=== PATIENT | female | born 1995 | race Two or more races ===

== ENCOUNTER → 2020-09-30 | Outpatient (CLI) | payer MEDICAID ==
[~2020-09-30] MED LIST: PREN-96 PO
[2020-09-30 11:32] LABS: Amphetamine Screen, Urine NEGATIVE (NEGATIVE); Barbiturate Scree,Urine NEGATIVE (NEGATIVE); Benzodiazephine Screen, Urine NEGATIVE (NEGATIVE); Cannabinoid Screen, Urine NEGATIVE (NEGATIVE); Cocaine Screen, Urine NEGATIVE (NEGATIVE); Opiate Scree,Urine NEGATIVE (NEGATIVE); Phencyclidine Screen, Urine NEGATIVE (NEGATIVE)
[2020-09-30 11:57] LABS: Basophils # (auto) 0 10 ^3/uL (0-0.2); Basophils % (auto) 0.2 % (0.0-2.0); Eosinophils # (auto) 0.1 10 ^3/uL (0-0.8); Eosinophils % (auto) 1.1 % (0.0-7.0); Hematocrit 39.1 % (36.0-46.0); Hemoglobin 13.3 g/dL (12.2-16.2); Lymphocytes # (auto) 1.5 10 ^3/uL (0.4-5.4); Lymphocytes % (auto) 16.7 % (10.0-50.0); Mean Corpuscular Hemoglobin 29.7 pg (28.0-32.0); Mean Corpuscular Hgb Conc. 34.1 g/dL (32.0-36.0); Monocytes # (auto) 0.3 10 ^3/uL (0-1.3); Monocytes % (auto) 3.3 % (0.0-12.0); Neutrophils # (auto) 7.1 10 ^3/uL (1.6-8.6); Neutrophils % (auto) 78.7 % (37.0-80.0); Platelet Count (auto) 181 10^3/uL (140-450); Red Blood Cells 4.49 10^6/uL (4.0-5.20); Red Cell Distribution Width 14.4 % (11.8-14.3)
[2020-10-01 07:06] LABS: RPR Non Reactive (Non Reactive)
== END | disposition home or self-care (01) ==
LOC: LAB 10:05
PROVIDERS: ATTEND Obstetrics & Gynecology
DX: Z34.80 Encounter for supervision of other normal pregnancy, unspecified trimester (principal); Z22.2 Carrier of diphtheria
CPT/HCPCS: 36415; 80307; 83036; 84112; 84702; 85025; 86592; 86703; 86762; 86850; 86900; 86901; 87086; 87340

== ENCOUNTER 2020-12-24 11:19 | Observation (INO) | payer MEDICAID ==
[~2020-12-24] VITALS: Ht 165.1 cm; Wt 70.3 kg
[2020-12-24 11:36] VITALS: BP 104/64
== END 2020-12-24 21:35 | disposition home or self-care (01) ==
LOC: ER 11:19 → LDRP 11:45 → UNDODISOB 15:30 → LDRP 17:22
PROVIDERS: ADMIT Obstetrics & Gynecology; ATTEND Obstetrics & Gynecology
DX: O26.892 Other specified pregnancy related conditions, second trimester (principal); R10.11 Right upper quadrant pain; O36.0920 Maternal care for other rhesus isoimmunization, second trimester, not applicable or unspecified; D84.9 Immunodeficiency, unspecified; O99.112 Other diseases of the blood and blood-forming organs and certain disorders involving the immune mechanism complicating pregnancy, second trimester; Z3A.23 23 weeks gestation of pregnancy
CPT/HCPCS: 59025; 76815; 81002; 94760; 99284; G0378

== ENCOUNTER 2020-12-26 07:35 | Observation (INO) | payer MEDICAID | END 2020-12-26 10:26 | disposition home or self-care (01) | LOC: LDRP 07:35 | PROVIDERS: ADMIT Specialist; ATTEND Specialist | DX: Z34.82 Encounter for supervision of other normal pregnancy, second trimester (principal); Z3A.23 23 weeks gestation of pregnancy | CPT/HCPCS: 59025; 76815; 81002; G0378 ==

== ENCOUNTER → 2021-01-26 | Outpatient (CLI) | payer MEDICAID | END | disposition home or self-care (01) | LOC: LAB 09:08 | PROVIDERS: ATTEND Obstetrics & Gynecology | DX: Z34.82 Encounter for supervision of other normal pregnancy, second trimester (principal); Z3A.27 27 weeks gestation of pregnancy | CPT/HCPCS: 82951 ==

== ENCOUNTER → 2021-03-17 | Outpatient (CLI) | payer MEDICAID ==
[2021-03-17 10:28] LABS: Basophils # (auto) 0 10 ^3/uL (0-0.2); Basophils % (auto) 0.2 % (0.0-2.0); Eosinophils # (auto) 0.1 10 ^3/uL (0-0.8); Hematocrit 34.8 % (36.0-46.0); Hemoglobin 11.9 g/dL (12.2-16.2); Lymphocytes # (auto) 1.3 10 ^3/uL (0.4-5.4); Lymphocytes % (auto) 13.2 % (10.0-50.0); Mean Corpuscular Hemoglobin 29.7 pg (28.0-32.0); Mean Corpuscular Hgb Conc. 34.1 g/dL (32.0-36.0); Mean Corpuscular Volume 87.3 fL (80.0-100.0); Monocytes # (auto) 0.4 10 ^3/uL (0-1.3); Monocytes % (auto) 4.7 % (0.0-12.0); Neutrophils # (auto) 7.7 10 ^3/uL (1.6-8.6); Neutrophils % (auto) 80.9 % (37.0-80.0); Red Blood Cells 3.99 10^6/uL (4.0-5.20); Red Cell Distribution Width 13.5 % (11.8-14.3); White Blood Cell 9.5 10^3/uL (4.4-10.8)
[2021-03-18 06:06] LABS: RPR Non Reactive (Non Reactive)
== END | disposition home or self-care (01) ==
LOC: LAB 10:02
PROVIDERS: ATTEND Obstetrics & Gynecology
DX: Z34.83 Encounter for supervision of other normal pregnancy, third trimester (principal); Z3A.34 34 weeks gestation of pregnancy
CPT/HCPCS: 36415; 84112; 85025; 86592

== ENCOUNTER 2021-03-25 16:00 | Observation (INO) | payer MEDICAID | END 2021-03-25 18:12 | disposition home or self-care (01) | LOC: LDRP 16:00 | PROVIDERS: ADMIT Obstetrics & Gynecology; ATTEND Obstetrics & Gynecology | DX: O36.5930 Maternal care for other known or suspected poor fetal growth, third trimester, not applicable or unspecified (principal); O42.913 Preterm premature rupture of membranes, unspecified as to length of time between rupture and onset of labor, third trimester; O26.893 Other specified pregnancy related conditions, third trimester; R10.2 Pelvic and perineal pain; Z3A.36 36 weeks gestation of pregnancy | CPT/HCPCS: 59025; 76818; 81002; 94760; G0378 ==

== ENCOUNTER 2021-04-01 07:47 | Observation (INO) | payer MEDICAID | END 2021-04-01 15:50 | disposition home or self-care (01) | LOC: LDRP 14:10 | PROVIDERS: ADMIT Obstetrics & Gynecology; ATTEND Obstetrics & Gynecology | DX: O36.8130 Decreased fetal movements, third trimester, not applicable or unspecified (principal); Z3A.37 37 weeks gestation of pregnancy | CPT/HCPCS: 59025; 76818; 81002; 94760; G0378; G0379 ==

== ENCOUNTER 2021-04-02 10:36 | Observation (INO) | payer MEDICAID ==
[~2021-04-02] VITALS: Ht 165.1 cm; Wt 75.7 kg
== END 2021-04-02 13:45 | disposition home or self-care (01) ==
LOC: LDRP 10:36
PROVIDERS: ADMIT Obstetrics & Gynecology; ATTEND Obstetrics & Gynecology
DX: O46.93 Antepartum hemorrhage, unspecified, third trimester (principal); O36.8130 Decreased fetal movements, third trimester, not applicable or unspecified; Z3A.38 38 weeks gestation of pregnancy
CPT/HCPCS: 59025; 76818; 81002; G0378; G0379

== ENCOUNTER 2021-04-03 08:50 | Observation (INO) | payer MEDICAID ==
[2021-04-03 10:04] LABS: Urine Bacteria FEW /hpf (None Seen); Urine Blood 2+ /uL (Negative); Urine Mucus FEW (None Seen); Urine Specific Gravity 1.029 (1.001-1.035); Urine WBC 11 /hpf (0 - 5)
== END 2021-04-03 11:46 | disposition home or self-care (01) ==
LOC: LDRP 08:50
PROVIDERS: ADMIT Obstetrics & Gynecology Obstetrics; ATTEND Obstetrics & Gynecology Obstetrics
DX: O36.5930 Maternal care for other known or suspected poor fetal growth, third trimester, not applicable or unspecified (principal); O41.03X0 Oligohydramnios, third trimester, not applicable or unspecified; O46.93 Antepartum hemorrhage, unspecified, third trimester; Z3A.37 37 weeks gestation of pregnancy
CPT/HCPCS: 59025; 76818; 81001; 81002; 84112; G0378; G0379; Q0114

== ENCOUNTER 2021-04-04 10:28 | Observation (INO) | payer MEDICAID | END 2021-04-04 13:52 | disposition home or self-care (01) | LOC: LDRP 10:28 | PROVIDERS: ADMIT Obstetrics & Gynecology; ATTEND Obstetrics & Gynecology | DX: O24.419 Gestational diabetes mellitus in pregnancy, unspecified control (principal); O36.5930 Maternal care for other known or suspected poor fetal growth, third trimester, not applicable or unspecified; O41.03X0 Oligohydramnios, third trimester, not applicable or unspecified; Z3A.38 38 weeks gestation of pregnancy; Z79.899 Other long term (current) drug therapy | CPT/HCPCS: 59025; 76818; 81002; G0378; G0379 ==

== ENCOUNTER 2021-04-06 08:47 | Observation (INO) | payer MEDICAID | END 2021-04-06 10:46 | disposition home or self-care (01) | LOC: LDRP 08:47 | PROVIDERS: ADMIT Obstetrics & Gynecology; ATTEND Obstetrics & Gynecology | DX: O36.5930 Maternal care for other known or suspected poor fetal growth, third trimester, not applicable or unspecified (principal); O62.9 Abnormality of forces of labor, unspecified; Z3A.38 38 weeks gestation of pregnancy; Z79.899 Other long term (current) drug therapy | CPT/HCPCS: 59025; 76818; 81002; G0378; G0379 ==

== ENCOUNTER 2021-04-09 08:36 | Observation (INO) | payer MEDICAID | END 2021-04-09 10:04 | disposition home or self-care (01) | LOC: LDRP 09:19 | PROVIDERS: ADMIT Obstetrics & Gynecology; ATTEND Obstetrics & Gynecology | DX: O36.5930 Maternal care for other known or suspected poor fetal growth, third trimester, not applicable or unspecified (principal); O62.9 Abnormality of forces of labor, unspecified; O26.893 Other specified pregnancy related conditions, third trimester; N89.8 Other specified noninflammatory disorders of vagina; Z3A.38 38 weeks gestation of pregnancy | CPT/HCPCS: 59025; 76818; 81002; 94760; G0378; G0379 ==

== ENCOUNTER 2021-04-12 07:19 | Observation (INO) | payer MEDICAID | END 2021-04-12 15:23 | disposition home or self-care (01) | LOC: LDRP 13:43 | PROVIDERS: ADMIT Obstetrics & Gynecology Obstetrics; ATTEND Obstetrics & Gynecology Obstetrics | DX: O36.5930 Maternal care for other known or suspected poor fetal growth, third trimester, not applicable or unspecified (principal); Z3A.39 39 weeks gestation of pregnancy | CPT/HCPCS: 59025; 76818; 81002; 94760; G0378; G0379 ==

== ENCOUNTER 2021-04-13 15:47 | Observation (INO) | payer MEDICAID | END 2021-04-13 17:04 | disposition home or self-care (01) | LOC: LDRP 15:47 | PROVIDERS: ADMIT Obstetrics & Gynecology; ATTEND Obstetrics & Gynecology | DX: O62.9 Abnormality of forces of labor, unspecified (principal); O36.8130 Decreased fetal movements, third trimester, not applicable or unspecified; O26.893 Other specified pregnancy related conditions, third trimester; R51.9 Headache, unspecified; Z3A.39 39 weeks gestation of pregnancy; Z79.899 Other long term (current) drug therapy | CPT/HCPCS: 59025; 81002; G0378; G0379 ==

== ENCOUNTER 2021-04-14 02:20 | Inpatient (IN) | payer MEDICAID ==
[2021-04-14] MEDS ORDERED: METHYLERGONOVINE MALEATE 0.2 MG/ML AMP IM ONE (02:31)
[2021-04-14] MEDS ORDERED: OXYTOCIN 10UNIT/ML 1ML VIAL ONE (02:31)
[2021-04-14] MEDS ORDERED: LIDOCAINE 2%HCL (LOCAL ANESTH.) INJ 20ML MDV ONE ×2 (02:43→02:54)
[2021-04-14] MEDS ORDERED: PHISODERM TOP SOLN 240ML BTL TOP PRN (03:00)
[2021-04-14] MEDS ORDERED: LACTATED RINGER'S 1,000 ML IV SCH (03:00)
[2021-04-14] MEDS ORDERED: WITCH HAZEL-GLYCERIN PAD TOP PRN (03:00)
[2021-04-14] MEDS ORDERED: LIDOCAINE 2%HCL (LOCAL ANESTH.) INJ 20ML MDV IJ PRN (03:00)
[2021-04-14] MEDS: DERMOPLAST 60ML BOTTLE TOP PRN (03:22)
[2021-04-14 04:09] LABS: Basophils # (auto) 0 10 ^3/uL (0-0.2); Basophils % (auto) 0.3 % (0.0-2.0); Eosinophils # (auto) 0 10 ^3/uL (0-0.8); Eosinophils % (auto) 0.1 % (0.0-7.0); Hematocrit 35.8 % (36.0-46.0); Hemoglobin 12.4 g/dL (12.2-16.2); Lymphocytes # (auto) 0.9 10 ^3/uL (0.4-5.4); Lymphocytes % (auto) 5.5 % (10.0-50.0); Mean Corpuscular Hemoglobin 30.3 pg (28.0-32.0); Mean Corpuscular Hgb Conc. 34.5 g/dL (32.0-36.0); Mean Corpuscular Volume 87.8 fL (80.0-100.0); Monocytes # (auto) 0.4 10 ^3/uL (0-1.3); Monocytes % (auto) 2.3 % (0.0-12.0); Neutrophils # (auto) 14.3 10 ^3/uL (1.6-8.6); Neutrophils % (auto) 91.8 % (37.0-80.0); Red Blood Cells 4.08 10^6/uL (4.0-5.20); White Blood Cell 15.6 10^3/uL (4.4-10.8)
[2021-04-14 04:23] LABS: INR 0.99 (0.9-1.15); Partial Thromboplastin Time 26.6 sec (23.6-33.0)
[2021-04-14 04:23] LABS: Urine Bacteria NONE SEEN /hpf (None Seen); Urine Blood Negative /uL (Negative); Urine Mucus FEW (None Seen); Urine Specific Gravity 1.025 (1.001-1.035); Urine WBC 1 /hpf (0 - 5)
[2021-04-14 04:49] LABS: Albumin 2.4 g/dL (3.4-5.0); BUN/Creatinine Ratio 16.4; Calcium 8.4 mg/dL (8.5-10.1); Potassium 3.9 mmol/L (3.5-5.1)
[2021-04-14 04:51] LABS: Alcohol, Urine < 3.0 mg/dL (0-10); Amphetamine Screen, Urine NEGATIVE (NEGATIVE); Barbiturate Scree,Urine NEGATIVE (NEGATIVE); Benzodiazephine Screen, Urine NEGATIVE (NEGATIVE); Cannabinoid Screen, Urine NEGATIVE (NEGATIVE); Cocaine Screen, Urine NEGATIVE (NEGATIVE); Opiate Scree,Urine NEGATIVE (NEGATIVE); Phencyclidine Screen, Urine NEGATIVE (NEGATIVE)
[2021-04-14 04:52] LABS: Bilirubin, Total 0.2 mg/dL (0.2-1.0); Total Protein 7.1 g/dL (6.4-8.2)
[2021-04-14 06:30] VITALS: BP 101/47
[2021-04-14] MEDS ORDERED: ONDANSETRON ODT 4 MG TAB PO PRN (07:00)
[2021-04-14] MEDS ORDERED: ACETAMINOPHEN 325 MG TAB PO PRN (07:00)
[2021-04-14] MEDS ORDERED: IBUPROFEN 600 MG TAB PO PRN (07:00)
[2021-04-14 10:54] VITALS: BP 102/59
[2021-04-14 15:30] VITALS: BP 103/55
[2021-04-14 19:00] VITALS: BP 117/62
[2021-04-14 23:10] VITALS: BP 97/59
[2021-04-15 03:00] VITALS: BP 101/58
[2021-04-15 07:07] LABS: RPR Non Reactive (Non Reactive)
[2021-04-15 07:15] VITALS: BP 100/47
[2021-04-15] MEDS: DERMOPLAST 60ML BOTTLE TOP PRN (09:03)
== END 2021-04-15 10:45 | disposition home or self-care (01) | DRG 560 ==
LOC: LDRP 02:20 → OBSVTOIN 02:25 → LDRP 02:26
PROVIDERS: ADMIT Obstetrics & Gynecology; ATTEND Obstetrics & Gynecology
PROC: 10E0XZZ Delivery of Products of Conception, External Approach (ICD-10-PCS; principal; 2021-04-14)
PROC: 0HQ9XZZ Repair Perineum Skin, External Approach (ICD-10-PCS; 2021-04-14)
DX: O62.3 Precipitate labor (principal); Z37.0 Single live birth; O70.0 First degree perineal laceration during delivery; Z20.822 Contact with and (suspected) exposure to COVID-19; Z3A.39 39 weeks gestation of pregnancy
CPT/HCPCS: 36415; 59025; 59409; 80053; 80307; 81001; 85025; 85610; 85730; 86592; 86850; 86900; 86901; 87426; 94760; 96372; G0378

== ENCOUNTER → 2023-07-18 | Outpatient (CLI) | payer MEDICAID | END | disposition home or self-care (01) | LOC: LAB 12:38 | PROVIDERS: ATTEND Obstetrics & Gynecology | DX: Z34.80 Encounter for supervision of other normal pregnancy, unspecified trimester (principal); Z3A.00 Weeks of gestation of pregnancy not specified | CPT/HCPCS: 36415; 84702 ==

== ENCOUNTER → 2023-08-11 | Outpatient (CLI) | payer MEDICAID ==
[2023-08-11 10:24] LABS: Basophils # (auto) 0 10 ^3/uL (0-0.2); Basophils % (auto) 0.3 % (0.0-2.0); Eosinophils # (auto) 0.1 10 ^3/uL (0-0.8); Eosinophils % (auto) 1.8 % (0.0-7.0); Hematocrit 39.3 % (36.0-46.0); Hemoglobin 12.8 g/dL (12.2-16.2); Lymphocytes # (auto) 1.8 10 ^3/uL (0.4-5.4); Lymphocytes % (auto) 25.7 % (10.0-50.0); Mean Corpuscular Hemoglobin 28.5 pg (28.0-32.0); Mean Corpuscular Hgb Conc. 32.7 g/dL (32.0-36.0); Mean Corpuscular Volume 87.2 fL (80.0-100.0); Monocytes # (auto) 0.3 10 ^3/uL (0-1.3); Monocytes % (auto) 3.8 % (0.0-12.0); Neutrophils # (auto) 4.8 10 ^3/uL (1.6-8.6); Neutrophils % (auto) 68.4 % (37.0-80.0); Red Cell Distribution Width 13.2 % (11.8-14.3)
[2023-08-11 10:50] LABS: Amphetamine Screen, Urine Neg (NEGATIVE); Barbiturate Scree,Urine Neg (NEGATIVE); Benzodiazephine Screen, Urine Neg (NEGATIVE); Cannabinoid Screen, Urine Neg (NEGATIVE); Cocaine Screen, Urine Neg (NEGATIVE); Opiate Scree,Urine Neg (NEGATIVE)
[2023-08-11 10:51] LABS: Phencyclidine Screen, Urine Neg (NEGATIVE)
[2023-08-12 08:06] LABS: RPR Non Reactive (Non Reactive)
== END | disposition home or self-care (01) ==
LOC: LAB 09:46
PROVIDERS: ATTEND Obstetrics & Gynecology
DX: Z34.80 Encounter for supervision of other normal pregnancy, unspecified trimester (principal); Z31.430 Encounter of female for testing for genetic disease carrier status for procreative management; Z36.0 Encounter for antenatal screening for chromosomal anomalies; Z3A.00 Weeks of gestation of pregnancy not specified
CPT/HCPCS: 36415; 80307; 83036; 84702; 85025; 86592; 86703; 86762; 86850; 86900; 86901; 87086; 87340

== ENCOUNTER 2024-02-23 15:15 | Inpatient (IN) | payer MEDICAID ==
[~2024-02-23] VITALS: Ht 167.6 cm; Wt 77.6 kg
[2024-02-23] MEDS ORDERED: BUTORPHANOL TARTRATE 2 MG/1 ML VIAL IV PRN ×2 (15:30)
[2024-02-23] MEDS ORDERED: LIDOCAINE 2%HCL (LOCAL ANESTH.) INJ 20ML MDV IJ PRN (15:30)
[2024-02-23] MEDS ORDERED: TERBUTALINE SULFATE 1 MG/ML 1ML VIAL SC PRN (15:30)
[2024-02-23] MEDS: LACT. RINGERS/OXYTOCIN 20UNITS 500 ML IV ONE ×2 (15:59→16:03)
[2024-02-23] MEDS: OXYTOCIN 10UNIT/ML 1ML VIAL ONE (15:59)
[2024-02-23] MEDS: METHYLERGONOVINE MALEATE 0.2 MG/ML AMP IM PRN (16:00)
[2024-02-23] MEDS: DERMOPLAST 60ML BOTTLE TOP PRN (16:03)
[2024-02-23] MEDS: PHISODERM TOP SOLN 240ML BTL TOP PRN (16:04)
[2024-02-23] MEDS: WITCH HAZEL-GLYCERIN PAD TOP PRN (16:04)
[2024-02-23] MEDS: LACTATED RINGER'S 1,000 ML IV SCH (16:05)
[2024-02-23 16:07] LABS: Basophils # (auto) 0 10 ^3/uL (0-0.2); Basophils % (auto) 0.3 % (0.0-2.0); Eosinophils # (auto) 0 10 ^3/uL (0-0.8); Eosinophils % (auto) 0.1 % (0.0-7.0); Hematocrit 34.7 % (36.0-46.0); Hemoglobin 11.6 g/dL (12.2-16.2); Lymphocytes # (auto) 0.9 10 ^3/uL (0.4-5.4); Mean Corpuscular Hemoglobin 28.3 pg (28.0-32.0); Mean Corpuscular Hgb Conc. 33.4 g/dL (32.0-36.0); Mean Corpuscular Volume 84.6 fL (80.0-100.0); Monocytes # (auto) 0.6 10 ^3/uL (0-1.3); Monocytes % (auto) 4.2 % (0.0-12.0); Neutrophils # (auto) 13.7 10 ^3/uL (1.6-8.6); Neutrophils % (auto) 89.4 % (37.0-80.0); Nucleated Red Blood Cells % 0.1 %; Platelet Count (auto) 135 10^3/uL (140-450); Red Cell Distribution Width 14.6 % (11.8-14.3); White Blood Cell 15.3 10^3/uL (4.4-10.8)
[2024-02-23 16:27] LABS: Alanine Aminotransferase 13 U/L (7-40); Albumin 3.9 g/dL (3.2-4.8); Alkaline Phosphatase 174 U/L (46-116); Anion Gap 11 (5-15); Aspartate Aminotransferase 13 U/L (13-40); BUN/Creatinine Ratio 11.3 (10.0-20.0); Bilirubin, Total 0.3 mg/dL (0.2-1.0); Blood Urea Nitrogen 7 mg/dL (9-23); Calcium 8.7 mg/dL (8.7-10.4); Carbon Dioxide 20 mmol/L (20-30); Chloride 102 mmol/L (98-107); Glucose 116 mg/dL (74-106); Potassium 3.6 mmol/L (3.5-5.1); Sodium 133 mmol/L (136-145); Total Protein 7.1 g/dL (5.7-8.2)
[2024-02-23 16:40] LABS: INR 0.98 (0.9-1.15); Partial Thromboplastin Time 27.4 SEC (24.5-34.5); Prothrombin Time 10.4 sec (9.3-11.8)
[2024-02-23 17:21] LABS: Urine Bacteria None Seen /hpf (None Seen)
[2024-02-23] MEDS ORDERED: ACETAMINOPHEN 325 MG TAB PO PRN (17:30)
[2024-02-23] MEDS ORDERED: ONDANSETRON ODT 4 MG TAB PO PRN (17:30)
[2024-02-23 17:45] LABS: Amphetamine Screen, Urine Neg (NEGATIVE); Barbiturate Scree,Urine Neg (NEGATIVE); Benzodiazephine Screen, Urine Neg (NEGATIVE); Cannabinoid Screen, Urine Neg (NEGATIVE); Cocaine Screen, Urine Neg (NEGATIVE); Opiate Scree,Urine Neg (NEGATIVE); Phencyclidine Screen, Urine Neg (NEGATIVE)
[2024-02-23 18:06] LABS: Urine Blood Negative /uL (Negative); Urine Clarity Clear (Clear); Urine Color Yellow (Yellow); Urine Mucus FEW (None Seen); Urine Protein, UAD TRACE (Negative); Urine Specific Gravity 1.023 (1.001-1.035); Urine Urobilinogen Normal (Negative); Urine WBC 1 /hpf (0 - 5)
[2024-02-23 19:00] VITALS: BP 112/65; PULSE 85; RESP 16; TEMP 98.7; O2SAT 98
[2024-02-23 23:00] VITALS: BP 115/65; PULSE 76; RESP 16; TEMP 98.9; O2SAT 99
[2024-02-24 03:00] VITALS: BP 92/46; PULSE 72; RESP 16; TEMP 98.7; O2SAT 99
[2024-02-24] MEDS: IBUPROFEN 600 MG TAB PO PRN (05:30)
[2024-02-24 07:00] VITALS: BP 86/54; PULSE 61; RESP 18; TEMP 98.3; O2SAT 98
[2024-02-24 08:06] LABS: RPR Non Reactive (Non Reactive)
[2024-02-24 11:00] VITALS: BP 97/57; PULSE 65; TEMP 98.3; O2SAT 96
[2024-02-24 15:04] VITALS: BP 91/61; PULSE 76; RESP 16; TEMP 98.9; O2SAT 96
== END 2024-02-24 18:06 | disposition home or self-care (01) | DRG 560 ==
LOC: LDRP 15:15
PROVIDERS: ADMIT Obstetrics & Gynecology; ATTEND Obstetrics & Gynecology
PROC: 10E0XZZ Delivery of Products of Conception, External Approach (ICD-10-PCS; principal; 2024-02-23)
DX: O69.81X0 Labor and delivery complicated by cord around neck, without compression, not applicable or unspecified (principal); Z37.0 Single live birth; O60.14X0 Preterm labor third trimester with preterm delivery third trimester, not applicable or unspecified; Z3A.37 37 weeks gestation of pregnancy
CPT/HCPCS: 36415; 59025; 59409; 59414; 80053; 80307; 81001; 81002; 85025; 85610; 85730; 86592; 86803; 86850; 86900; 86901; 94760; 96360; 96361; 96365; 96366; G0378

== ENCOUNTER 2025-06-17 10:06 | Observation (INO) | payer MEDICAID ==
--- NOTE | 2025-06-17 11:04 | DVH ---
CLINICAL HISTORY: IUGR COMPARISON: BIOPHYSICAL PROFILE on DOS: 04/04/21, BIOPHYSICAL PROFILE on DOS: 04/02/21 TECHNIQUE: biophysical profile was performed. Transabdominal sonographic images of the fetus were obtained. FINDINGS: The fetus is in cephalic position. heart rate measures 131 BPM. Amniotic fluid index measures 11.2 cm. The placenta is anterior in position without visualized evidence of previa or abruption. BPP profile is an overall score of 8/8, with 2/2 points for breathing, with at least one episode of breathing over a 30 second duration during a 30 minute observation, 2/2 points for movements, with 3 or more discrete body or limb movements, 2/2 points for tone, with one or more episodes of extremity extension with return to flexion, or opening and closing of hand, and 2/2 points for amniotic fluid, with at least 1 pocket of amniotic fluid that measures 2 cm in 2 perpendicular planes. IMPRESSION: BPP score of 8/8.
--- NOTE | 2025-06-18 08:00 | DVHDS2 ---
Physician Discharge Progress N Final Diagnosis: sga 39wks Operations or Procedures: Operations or Procedures nst reactive reviwed,sono Condition on Discharge: Good Disposition: Home Discharge Instructions: Diet: Regular Activity: No Restrictions, As Tolerated Medications: na Follow Up Care: Specialist: 2 days for iol Discharge Statement: "Patient was advised to return to the ER or call 911 if any headaches, dizziness, shortness of breath, chest pain, abdominal pain, bleeding, fevers, or worsening of medical condition. Patient was counseled about treatment plan, medications, possible side effects, patientverbalized understanding. All questions were answered to the best of my ability. This discharge took greater then 30 minutes in planning, reviewing documentation, counseling the patient, and discussing with other team members." Visit Coding OBGYN Date of Service: Jun 17, 2025 Billing Provider: LUIS E GARCIA DO CQ DEVELOPER Common Visit Codes: 88262-SCVYVTL OBS CARE (HIGH) CQ DEVELOPER Procedure Codes: 87133-67- NON-STRESS TEST LUIS E GARCIA DO Jun 18, 2025 08:00
== END 2025-06-17 12:08 | disposition home or self-care (01) ==
LOC: UNDOADMOB 10:06 → LDRP 10:06
PROVIDERS: ADMIT Obstetrics & Gynecology; ATTEND Obstetrics & Gynecology
DX: O36.5930 Maternal care for other known or suspected poor fetal growth, third trimester, not applicable or unspecified (principal); Z3A.39 39 weeks gestation of pregnancy; Z98.890 Other specified postprocedural states
CPT/HCPCS: 59025; 76819; 81002; 94760; A4649; G0378

== ENCOUNTER 2025-06-18 15:05 | Inpatient (IN) | payer MEDICAID ==
[~2025-06-18] VITALS: Ht 165.1 cm; Wt 77.1 kg
[2025-06-18] MEDS ORDERED: BUTORPHANOL TARTRATE 2 MG/1 ML VIAL IV PRN ×2 (16:00)
[2025-06-18] MEDS: WITCH HAZEL-GLYCERIN PAD TOP PRN (16:01)
[2025-06-18] MEDS: PHISODERM TOP SOLN 240ML BTL TOP PRN (16:02)
[2025-06-18] MEDS: DERMOPLAST 60ML BOTTLE TOP PRN (16:02)
--- NOTE | 2025-06-18 16:04 | DVHHP ---
CHIEF COMPLAINT: Labor. HISTORY OF PRESENT ILLNESS: The patient is a 30-year-old 4, para 3, with EDC 06/18/2025, estimated gestational age of 40 weeks, admitted in active labor. No rupture of membranes. The patient was scheduled for induction in 2 days. PAST MEDICAL HISTORY: None. PAST SURGICAL HISTORY: None. SOCIAL HISTORY: None. FAMILY HISTORY: None. OB-ORGANIZATIONAL CONSULTANT HISTORY: Three normal vaginal deliveries. ALLERGIES: No known drug allergies. REVIEW OF SYSTEMS: Consistent with HPI. PHYSICAL EXAMINATION: VITAL SIGNS: Stable, afebrile. HEENT: Within normal limits. CARDIOVASCULAR: Regular rate and rhythm. LUNGS: Clear to auscultation. BREASTS: Symmetrical. No masses. ABDOMEN: Gravid, positive heart. PELVIC: 8 cm, 0 station, 80%. EXTREMITIES: No clubbing, cyanosis, or edema. IMPRESSION: Intrauterine at 40 weeks, in active labor. PLAN: Expected vaginal delivery. Informed consent obtained. DO GILBERTO Rosa TID: [id number] RECEIPT: [id number]
[2025-06-18 16:31] LABS: Hematocrit 33.3 % (36.0-46.0); Hemoglobin 10.9 g/dL (12.2-16.2); Mean Corpuscular Hemoglobin 26.8 pg (28.0-32.0); Mean Corpuscular Volume 82.3 fL (80.0-100.0); Nucleated Red Blood Cells % 0.0 %
[2025-06-18 16:48] LABS: Alanine Aminotransferase 16 U/L (7-40); Albumin 3.8 g/dL (3.2-4.8); Anion Gap 9 (5-15); BUN/Creatinine Ratio 14.5 (10.0-20.0); Bilirubin, Total 0.3 mg/dL (0.2-1.0); Blood Urea Nitrogen 9 mg/dL (9-23); Calcium 8.9 mg/dL (8.7-10.4); Carbon Dioxide 23 mmol/L (20-31); Chloride 103 mmol/L (98-107); Glucose 81 mg/dL (74-106); Potassium 3.9 mmol/L (3.5-5.1); Total Protein 7.3 g/dL (5.7-8.2)
[2025-06-18 16:55] LABS: Alkaline Phosphatase 146 U/L (46-116); Sodium 135 mmol/L (136-145)
[2025-06-18 17:02] LABS: Amphetamine Screen, Urine Neg (NEGATIVE); Barbiturate Scree,Urine Neg (NEGATIVE); Benzodiazephine Screen, Urine Neg (NEGATIVE); Cannabinoid Screen, Urine Neg (NEGATIVE); Cocaine Screen, Urine Neg (NEGATIVE); Opiate Scree,Urine Neg (NEGATIVE); Phencyclidine Screen, Urine Neg (NEGATIVE); Urine Protein, UAD Negative (Negative)
[2025-06-18 17:07] LABS: INR 0.94 (0.9-1.15); Partial Thromboplastin Time 25.0 SEC (24.5-34.5); Prothrombin Time 10.0 sec (9.3-11.8)
[2025-06-18] MEDS: LACT. RINGERS/OXYTOCIN 20UNITS 1,000 ML IV SCH (17:41)
[2025-06-18] MEDS: LACTATED RINGER'S 1,000 ML IV SCH (17:42)
--- NOTE | 2025-06-18 18:07 | DVHPN2 ---
Chief Complaints Patient reports: No new complaints Nursing reports: No new complaints Objective Medications Current Medications Medications (Trade) Dose Ordered Sig/Satinder Route PRN Reason Start Time Stop Time Status Last Admin Benzocaine (Dermoplast) 1 applic PRN PRN TOP PERINEAL AREA DISCOMFORT 06/18/25 16:00 06/18/25 16:02 Butorphanol Tartrate (Stadol Injection) 1 mg Q4HPRN PRN IV MODERATE PAIN (4-6 PAIN SCALE) 06/18/25 16:00 Butorphanol Tartrate (Stadol Injection) 2 mg Q4HPRN PRN IV SEVERE PAIN (7-10 PAIN SCALE) 06/18/25 16:00 Lactated Ringer's 1,000 ml @ 125 mls/hr Q8H IV 06/18/25 16:00 06/18/25 17:42 Lidocaine HCl (Xylocaine) 20 ml ONCE PRN IJ PERINEAL AREA DISCOMFORT 06/18/25 16:00 Oxytocin 1,000 ml @ 6 ml/hr Q24H IV 06/18/25 17:30 06/18/25 17:41 Sodium Lauryl Sulfate (Phisoderm) 240 ml PRN PRN TOP PERINEAL AREA DISCOMFORT 06/18/25 16:00 06/18/25 16:02 Terbutaline Sulfate (Brethine Inj) 0.25 mg ONCE PRN SC Uterine tachysystole 06/18/25 16:00 Claudio Diehl (Tucks) 1 pad PRN PRN TOP PERINEAL AREA DISCOMFORT 06/18/25 16:00 06/18/25 16:01 Others ve-10cm/90/0 Studies Laboratory Tests 06/18/25 16:14 Test 06/18/25 16:14 Range/Units Serum Glucose 81 74-106 mg/dL Ass/Plan Assessment term preg in active labor Plan expectant vag del Visit Coding OBGYN Date of Service: Jun 18, 2025 Billing Provider: LUIS E GARCIA DO SALES PROFESSIONAL BILINGUAL Common Visit Codes: [id number] OBS CARE (HIGH) SALES PROFESSIONAL BILINGUAL Procedure Codes: 92266-51- NON-STRESS TEST LUIS E GARCIA DO Jun 18, 2025 18:07
--- NOTE | 2025-06-18 18:32 | LDN2 ---
Labor and Delivery Note Date 06/18/25 Age 30 4 Para 4 EDC 12-23 EGA 40wks Diagnosis active labor,40 wks Vaginal Delivery: VTX Vacuum Assisted: No Placenta: Spontaneous Sex: Female Apgars 9-9 Nuchal Cord Transected: No Amniotic Fluid: Clear Anesthesia xylocaine Episiotomy: No Extension: Yes (1st dge perineal lac) Repaired with 2-0chromic EBL 300ml Labs Laboratory Tests 12/18/24 10:00: Hepatitis B Surface Antigen Negative, HIV (1&2) Antibody Negative, Rubella Antibody Positive Blood Bank 06/18/25 16:14: Blood Type O POSITIVE Complications none Conditions stable Comments/Significant Med Nica spec exam no cxal lac Visit Coding OBGYN Date of Service: Jun 18, 2025 Billing Provider: LUIS E GARCIA DO GUIDE CRUISE Common Visit Codes: [id number] OBS CARE (HIGH) GUIDE CRUISE Procedure Codes: 85921-COX DELIVERY ONLY LUIS E GARCIA DO Jun 18, 2025 18:32
[2025-06-18] MEDS ORDERED: ONDANSETRON HCL 4 MG/2 ML VIAL IV PRN (19:30)
[2025-06-18] MEDS: IBUPROFEN 600 MG TAB PO PRN (20:05)
[2025-06-18] MEDS: DOCUSATE SOD 100 MG CAP PO SCH (22:06)
[2025-06-18] MEDS: ACETAMINOPHEN 325 MG TAB PO PRN (22:06)
[2025-06-18] MEDS: LACT. RINGERS/OXYTOCIN 20UNITS 500 ML IV ONE ×2 (22:38→22:39)
[2025-06-18 23:16] VITALS: BP 102/58; PULSE 73; RESP 16; TEMP 98.3; O2SAT 99
[2025-06-18] MEDS: LIDOCAINE 2%HCL (LOCAL ANESTH.) INJ 20ML MDV IJ PRN (23:18)
[2025-06-19] MEDS: TERBUTALINE SULFATE 1 MG/ML 1ML VIAL SC PRN (00:12)
[2025-06-19 03:15] VITALS: BP 100/50; PULSE 74; RESP 18; TEMP 98.5; O2SAT 96
[2025-06-19 06:38] VITALS: BP 103/59; PULSE 80; RESP 18; TEMP 97.6; O2SAT 96
--- NOTE | 2025-06-19 07:27 | DVHDS2 ---
Discharge Summary Discharge Summary Date of Admission: Jun 18, 2025 Date of Discharge: Jun 19, 2025 Discharge Diagnosis: Spontaneous Vaginal Delivery Brief History: PP Note. Subjective 30 y/o now G4P ppd#1 s/p and doing well Delivery of viable term female @ 1812 Problems: IOL for IUGR QBL 350 Perineal Intact Lochia minimal Tolerating regular diet well. Ambulating and voiding well w/o feeling lightheaded or dizzy. Passing flatus but no BM yet. Breast feeding. IV Saline D/C per patient Desires and requests to be discharged home today Objective Vital Signs Date Time Temp Pulse Resp B/P (MAP) Pulse Ox O2 Delivery O2 Flow Rate FiO2 06/19/25 06:41 Room Air 06/19/25 06:38 97.6 80 18 103/59 (74) 96 97.6 Labs Laboratory Tests Test 06/18/25 16:14 06/18/25 15:10 Range/Units White Blood Count 11.2 H 4.4-10.8 10^3/uL Red Blood Count 4.04 4.0-5.20 10^6/uL Hemoglobin 10.9 L 12.2-16.2 g/dL Hematocrit 33.3 L 36.0-46.0 % Mean Corpuscular Volume 82.3 80.0-100.0 fL Mean Corpuscular Hemoglobin 26.8 L 28.0-32.0 pg Mean Corpuscular Hemoglobin Concent 32.6 32.0-36.0 g/dL Red Cell Distribution Width 14.9 H 11.8-14.3 % Platelet Count 170 140-450 10^3/uL Mean Platelet Volume 10.4 6.9-10.8 fL Neutrophils (%) (Auto) 80.1 H 37.0-80.0 % Lymphocytes (%) (Auto) 14.7 10.0-50.0 % Monocytes (%) (Auto) 4.1 0.0-12.0 % Eosinophils (%) (Auto) 0.3 0.0-7.0 % Basophils (%) (Auto) 0.8 0.0-2.0 % Neutrophils # (Auto) 9.0 H 1.6-8.6 10 ^3/uL Lymphocytes # (Auto) 1.6 0.4-5.4 10 ^3/uL Monocytes # (Auto) 0.5 0-1.3 10 ^3/uL Eosinophils # (Auto) 0 0-0.8 10 ^3/uL Basophils # (Auto) 0.1 0-0.2 10 ^3/uL Nucleated Red Blood Cells 0.0 % Prothrombin Time 10.0 9.3-11.8 sec Prothrombin Time INR 0.94 0.9-1.15 Activated Partial Thromboplast Time 25.0 24.5-34.5 SEC Sodium Level 135 L 136-145 mmol/L Potassium Level 3.9 3.5-5.1 mmol/L Chloride Level 103 98-107 mmol/L Carbon Dioxide Level 23 20-31 mmol/L Anion Gap 9 5-15 Blood Urea Nitrogen 9 9-23 mg/dL Creatinine 0.62 0.550-1.02 mg/dL Glomerular Filtration Rate Calc 122 >90 mL/min BUN/Creatinine Ratio 14.5 10.0-20.0 Serum Glucose 81 74-106 mg/dL Calcium Level 8.9 8.7-10.4 mg/dL Total Bilirubin 0.3 0.2-1.0 mg/dL Aspartate Amino Transferase (AST) 15 13-40 U/L Alanine Aminotransferase (ALT) 16 7-40 U/L Alkaline Phosphatase 146 H 46-116 U/L Total Protein 7.3 5.7-8.2 g/dL Albumin 3.8 3.2-4.8 g/dL Treponema pallidum Antibody Non-reactive Negative Hepatitis C Antibody Negative Negative Urine Color Colorless Yellow Urine Clarity Turbid H Clear Urine pH 6.5 5.0-9.0 Urine Specific [place] 1.014 1.001-1.035 Urine Protein Negative Negative Urine Ketones Negative Negative Urine Blood Trace H Negative /uL Urine Nitrite Negative Negative Urine Bilirubin Negative Negative Urine Urobilinogen Normal Negative mg/dL Urine Leukocyte Esterase 3+ Negative /uL Urine RBC 3 0 - 4 /hpf Urine Microscopic WBC 5 0-5 /HPF Urine Squamous Epithelial Cells Mod <5 /hpf Urine Bacteria Few H None Seen /hpf Urine Mucus Few None Seen Urine Glucose Normal Normal mg/dL Urine Opiates Screen Neg NEGATIVE Urine Fentanyl Screen Neg NEGATIVE Urine Barbiturates Screen Neg NEGATIVE Urine Phencyclidine Screen Neg NEGATIVE Urine Amphetamines Screen Neg NEGATIVE Urine Benzodiazepines Screen Neg NEGATIVE Urine Cocaine Screen Neg NEGATIVE Urine Cannabinoids Screen Neg NEGATIVE Current Medications Medications (Trade) Dose Ordered Sig/Satinder Route PRN Reason Start Time Stop Time Status Last Admin Dose Admin Lactated Ringer's 1,000 ml @ 125 mls/hr Q8H IV 06/18/25 16:00 06/19/25 06:41 DC 06/18/25 17:42 Claudio Diehl (Tucks) 1 pad PRN PRN TOP PERINEAL AREA DISCOMFORT 06/18/25 16:00 06/18/25 16:01 Sodium Lauryl Sulfate (Phisoderm) 240 ml PRN PRN TOP PERINEAL AREA DISCOMFORT 06/18/25 16:00 06/18/25 16:02 Benzocaine (Dermoplast) 1 applic PRN PRN TOP PERINEAL AREA DISCOMFORT 06/18/25 16:00 06/18/25 16:02 Butorphanol Tartrate (Stadol Injection) 1 mg Q4HPRN PRN IV MODERATE PAIN (4-6 PAIN SCALE) 06/18/25 16:00 06/19/25 06:41 DC Butorphanol Tartrate (Stadol Injection) 2 mg Q4HPRN PRN IV SEVERE PAIN (7-10 PAIN SCALE) 06/18/25 16:00 06/19/25 06:41 DC Lidocaine HCl (Xylocaine) 20 ml ONCE PRN IJ PERINEAL AREA DISCOMFORT 06/18/25 16:00 06/19/25 06:41 DC 06/18/25 23:18 Terbutaline Sulfate (Brethine Inj) 0.25 mg ONCE PRN SC Uterine tachysystole 06/18/25 16:00 06/19/25 06:41 DC Oxytocin 500 ml @ 999 mls/hr Q31M ONCE IV 06/18/25 16:00 06/18/25 16:30 DC 06/18/25 22:38 Oxytocin 500 ml @ 125 mls/hr Q4H ONCE IV 06/18/25 16:30 06/18/25 20:29 DC 06/18/25 22:39 Oxytocin 1,000 ml @ 6 ml/hr Q24H IV 06/18/25 17:30 06/19/25 06:41 DC 06/18/25 17:41 Ibuprofen (Motrin Tablet) 600 mg Q6HP PRN PO MODERATE PAIN (4-6 PAIN SCALE) 06/18/25 19:30 06/19/25 03:32 Acetaminophen (Tylenol Tablet) 650 mg Q4HP PRN PO MILD PAIN (1-3 PAIN SCALE) 06/18/25 19:30 06/19/25 06:33 Ondansetron HCl (Zofran) 4 mg Q4HP PRN IV NAUSEA / VOMITING 06/18/25 19:30 06/19/25 06:41 DC Docusate Sodium (Colace Capsule) 200 mg HS PO 06/18/25 22:00 06/18/25 22:06 Assessment/ Plan Blood Type: Rh: O Positive Breast feeding Rubella Immune GBS Negative Pain control with oral medications Bowel regimen: Increase fluid intake and fiber in diet, Laxative PRN PP BCM Plan: unknown at this current time Discharge plan: May discharge home later today / tomorrow if condition remains stable Daily assessment findings will determine when to discharge Physical exam on Discharge Afebrile, Chest: heart and lung sounds normal. Breasts: Nipples intact w/o cracks or soreness Abdomen: normal BS, soft, non-tender, no rebound or guarding, Fundus firm @ Umbilicus -1, lochia minimal Perineum:- no edema, or erythema, Extremities: no edema or tenderness Lochia - minimal Discharge Disposition: Home Discharge Instructions Discharge Information / Summary Diet: Routine regular diet rich in fiber, protein, iron and vitamin C with adequate fluid intake. Activity: Unrestricted. Advance as tolerated. Balance activities with rest periods No heavy lifting, pushing or straining. Pelvic rest x 6weeks Follow up with OB Provider in 1 week Medications: Ibuprofen 600mg every 6 hours as needed for pain. Continue Vitamin and iron Follow up with OB Provider in 1 week Instructions: self care instructions given. emergency signs and symptoms including but not limited to pre-eclampsia precautions and signs of infection, PPH & of PPD reviewed with patient. Follow up with OB Provider in 1 week Medications Current Medications Medications (Trade) Dose Ordered Sig/Satinder Route Start Time Stop Time Status Last Admin Dose Admin Claudio Diehl (Sunny) 1 pad PRN PRN TOP 06/18/25 16:00 06/18/25 16:01 Sodium Lauryl Sulfate (Phisoderm) 240 ml PRN PRN TOP 06/18/25 16:00 06/18/25 16:02 Benzocaine (Dermoplast) 1 applic PRN PRN TOP 06/18/25 16:00 06/18/25 16:02 Ibuprofen (Motrin Tablet) 600 mg Q6HP PRN PO 06/18/25 19:30 06/19/25 03:32 Acetaminophen (Tylenol Tablet) 650 mg Q4HP PRN PO 06/18/25 19:30 06/19/25 06:33 Docusate Sodium (Colace Capsule) 200 mg HS PO 06/18/25 22:00 06/18/25 22:06 Visit Coding OBGYN Date of Service: Jun 19, 2025 Billing Provider: MADELYN MCDUFFIE CNM SECURITY TEST ENGINEER Common Visit Codes: [id number] CARE DISCHARGE, 53738-MWL/OBS DISCH DAY >30MIN [facility]27
[2025-06-19 13:45] VITALS: BP 101/55; PULSE 67; RESP 18; TEMP 98; O2SAT 96
[2025-06-19 19:30] VITALS: BP 101/55; PULSE 67; RESP 18; TEMP 98; O2SAT 96
== END 2025-06-19 19:30 | disposition home or self-care (01) | DRG 560 ==
LOC: LDRP 15:05 → OBSVTOIN 15:40 → LDRP 15:47
PROVIDERS: ADMIT Obstetrics & Gynecology; ATTEND Obstetrics & Gynecology
PROC: 10E0XZZ Delivery of Products of Conception, External Approach (ICD-10-PCS; principal; 2025-06-18)
PROC: 0HQ9XZZ Repair Perineum Skin, External Approach (ICD-10-PCS; 2025-06-18)
DX: O70.0 First degree perineal laceration during delivery (principal); Z37.0 Single live birth; Z3A.40 40 weeks gestation of pregnancy
CPT/HCPCS: 36415; 59025; 59409; 80053; 80307; 81001; 85025; 85610; 85730; 86780; 86803; 86850; 86900; 86901; 94760; 96360; 96361; 96365; 96366; G0378; J2590